=== PATIENT | female | born 1990 | race Asian ===

== ENCOUNTER 2023-03-17 13:03 | Emergency (ER) | payer SELFPAY ==
[2023-03-17 13:05] VITALS: BP 118/88; PULSE 100; RESP 16; TEMP 36.6; O2SAT 100; BMI 20.6
--- NOTE | 2023-03-17 14:56 | EDS_ITS ---
HPI HPI - GI History of Present Illness Chief Complaint: Wound Check Informant: patient Abdominal Pain/Flank Pain Onset: Days Context: Gradual Onset Timing: Continuous Current Severity: Mild Maximum Severity: 6/10 Nausea/Vomiting/Emesis GI Symptom: Negative for Nausea or Vomiting Diarrhea/Melena/Hematochezia GI Symptom: Negative for Diarrhea, Melena or Hematochezia Associated Symptoms Associated Symptoms: Negative for Dysuria, Frequency, Hematuria or Urgency Narrative Narrative: 32-year-old healthy female had a laparoscopic cholecystectomy done due to gallstones in [facility] a little over 4 weeks ago. Her and her are moving to [facility]. Family is with him and is uses the electronics production supervisor. She has basically had some drainage from one of the surgical sites. No fever. No vomiting. She has been eating well. Otherwise she feels fine. Prior similar symptoms: No Recent Illness/Hospitalization: No PFSH PFSH no medical history Home Medications NK 03/17/23 [History Last Taken Unknown] cephalexin 500 mg capsule 500 mg PO Q8H #30 caps 03/17/23 [Rx Last Taken Unknown] Allergy/AdvReac Type Severity Reaction Status Date / Time No Known Allergies Allergy Verified 03/17/23 13:04 Social History Smoking Status: Never smoker ROS ROS ED ROS Narrative Denies recent illness. Drainage from surgical site. Minor discomfort. Review of Systems ROS Unobtainable: Denies due to encephalopathy Constitutional Constitutional ED: Denies chills, fever(s) or subjective ENT ENT ED: Denies ear pain, rhinorrhea or sore throat Cardiovascular Cardiovascular: Denies chest pain, palpitations or racing heartbeat Respiratory/Chest Respiratory/Chest: Denies cough, dyspnea or dyspnea on exertion Gastrointestinal Gastrointestinal: Denies abdominal pain, constipation, diarrhea, melena, nausea or vomiting Genitourinary Genitourinary ED: Denies dysuria or hematuria Musculoskeletal Musculoskeletal: Denies arthralgias Integumentary Reports other Details: Drainage from right lower laparoscopic surgical site. Neurologic Neurologic: Denies headache(s) Psychiatric Psychiatric: Denies anxiety Endocrine Endocrinology: Denies polydipsia Hematologic/Lymphatic Hematologic/Lymphatic: Denies easy bleeding Allergic/Immunologic Allergic/Immunologic ED: Denies mouth swelling EXAM Physical Exam Narrative Exam Narrative: Well-appearing 32-year-old female. Vital signs stable afebrile. H EENT exam unremarkable. Lungs clear. Heart regular rhythm no murmur. Abdomen soft nondistended normal bowel sounds no peritoneal signs. She has 3 laparoscopic incisions in the right upper quadrant epigastric area. The most medial and proximal incision is not infected but it still healing. It is not completely closed. The most right upper quadrant incision is dry and clean and looks good and is nontender. The right lower and most lateral incision has puslike discharge consistent with infection. There is minimal tenderness. No redness or cellulitis. Only minimally tender. The right upper quadrant itself is not tender just the most of the right lower incision. That area looks like there is a wound infection. Otherwise the abdomen is benign. Left upper and lower and right lower quadrants are unremarkable. Nondistended. Normal bowel sounds. Moving all 4 extremities. Neurologically she is awake and alert. Const Vital Signs: 03/17/23 13:05 Temperature 97.8 F Temperature Source Temporal Pulse Rate 100 Respiratory Rate 16 Blood Pressure 118/88 H Blood Pressure Mean 98 Pulse Ox 100 Oxygen Delivery Method Room Air Positive well nourished and well developed; Negative for obese, cachectic, contractures or unkempt General Appearance ED: well developed and NAD; Negative for unkempt, cachectic, contractures or pallor Nutritional Appearance: Negative for cachectic or obese HEENT Reports moist mucous membranes normocephalic and atraumatic; Negative for trauma or tenderness Eyes PERRL and EOMs intact bilaterally General Eye ED: Negative for pale conjunctiva, scleral icterus or other Neck no lymphadenopathy, supple and no JVD General: Negative for tenderness Carotids: Negative for other Lymph Lymphatic: Negative for other Resp normal respiratory effort and clear to auscultation bilaterally Effort and Inspection: Negative for respiratory distress Auscultation: Negative for rales, rhonchi or wheezes Cardio regular rate, regular rhythm, S1 normal heart sound, S2 normal heart sound and no murmurs Rate: Negative for bradycardia or tachycardic Rhythm: Negative for abnormal rhythm GI non-tender, non-distended and no masses GI Narrative: Drainage from right lower laparoscopic incision. Infected. No cellulitis. No significant tenderness. Auscultation: normoactive bowel sounds Palpation: soft and tender; Negative for guarding or rigid Back/Spine no CVA tenderness General Back: Negative for CVA tenderness Cervical Spine: Negative for cervical spine tenderness Coccyx: Negative for other Extremity full ROM General Extremety ED: Negative for edema, tenderness or other findings General Extremity: Negative for edema or other findings Neuro CN's II-XII intact bilaterally and moves all extremities Sensorium / Orientation: alert, oriented to person, oriented to place and oriented to time; Negative for orientation impaired, confused, lethargic or stuporous Motor Exam: strength 5/5 throughout Psych mental status grossly normal and thought process normal Appearance: Negative for unkempt Attitude: No agitated Mood & Affect: Negative for depressed, anxious or tearful Skin no wounds General Skin Exam: Negative for jaundice or pallor Lesions: no lesions Rashes: no rashes Trauma: Negative for abrasion Nails: Negative for discolored MDM MDM MDM Narrative Medical decision making narrative: 32-year-old healthy [place] female who had a laparoscopic cholecystectomy over a month ago in [facility]. The 1 surgical laparoscopic site looks like it is infected with puslike drainage. No cellulitis. She was started on Keflex first dose given here #30 no refill and outpatient follow-up with one of our local general surgeons to ensure this is improving. Discharge Plan Triage Chief Complaint: Wound Check ED Provider: Tony Jimenez Dx/Rx/DC Orders Clinical Impression: Infected surgical wound Instructions: ED Wound Infection after surgery Prescriptions: New cephalexin 500 mg capsule 500 mg PO Q8H Qty: 30 0RF No Action NK Referrals: Hosea Cortes MD [Med Staff - Active Staff] - As soon as possible Activity Restrictions/Additional Instructions: The upper incision just has not closed yet. The right lower incision has signs of infection. You will be started on antibiotic Keflex 4 times a day for a week. Warm compresses to the right lower incision that is draining. Call and follow-up with the surgeon to have this reevaluated. Hopefully if will resolve with antibiotic alone. Sometimes into going to drain it if the infection does not clear up. Return if she is feeling a lot worse with fever or the abdominal wall looks worse.
[2023-03-17] MEDS: Cephalexin 250 MG Capsule 500 MG PO (15:08)
== END 2023-03-17 15:10 | disposition home or self-care (01) ==
LOC: ED 14:58
PROVIDERS: Emergency Provider Emergency Medicine; Visit Provider Emergency Medicine
DX: T81.41XA Infection following a procedure, superficial incisional surgical site, initial encounter (principal); X58.XXXA Exposure to other specified factors, initial encounter; Z90.49 Acquired absence of other specified parts of digestive tract
CPT/HCPCS: 99282

== ENCOUNTER → 2023-05-28 | Outpatient (CLI) | payer SELFPAY ==
--- NOTE | 2023-05-28 14:42 | CT_ITS ---
We are attempting to reach an attending provider to discuss findings. An addendum with communication details will be sent when the communication is complete. STUDY: CT ABDOMEN WITHOUT CONTRAST REASON FOR EXAM: Female, 32 years old. abdominal wound drainage, mass - RADIATION DOSAGE (If Supplied By Facility): CTDIvol = ( 6.04 ) mGy, DLP = ( 184.15 ) mGycm TECHNIQUE: Transaxial images were obtained without intravenous contrast, and oral contrast. Sagittal and coronal images were reconstructed. Individualized dose optimization techniques were used for this CT. COMPARISON: None. FINDINGS: The visualized lung bases are unremarkable. The visualized portions of the heart are within normal limits. The liver is normal in size. There is a cyst in left lobe as well as a second hypoattenuated nodule which is slightly greater in attenuation than simple cyst possibly due to volume averaging. Bile ducts are not dilated. Gallbladder has been removed surgically.. Normal spleen. Normal pancreas. Normal bilateral adrenal glands. Normal right kidney. Normal left kidney. Normal visualized stomach. Nonspecific ileus with diffuse fecal retention in the colon. . The appendix is visualized and appears normal. Normal abdominal aorta. Normal inferior vena cava. Normal retroperitoneum. There is a tiny anterior abdominal wall hernia with fat and mild thickening in the fat. Normal osseous structures. Uterus is enlarged projecting into the lower abdomen containing pelvic mass containing fluid consistent with intrauterine gestational sac noted on CAT scan of the pelvis. CT/Abdomen without IV Contrast IMPRESSION: 2 small hypoattenuated nodules in the liver one of which is clearly cystic and the other is indeterminate based on Hounsfield numbers. Ultrasound would be useful for further evaluation. Tiny fat-containing anterior abdominal wall hernia with mild thickening in the adjacent fat Large pelvic mass consistent with gravid uterus containing intrauterine gestational sac Electronically Signed: Russel Guillory MD at 17:23 EDT ,
--- NOTE | 2023-05-28 14:55 | CT_ITS ---
STUDY: CT PELVIS WITHOUT CONTRAST REASON FOR EXAM: Female, 32 years old. MASS RADIATION DOSAGE (If Supplied By Facility): CTDIvol = ( 6.17 ) mGy, DLP = ( 151.43 ) mGycm TECHNIQUE: Transaxial imaging of the pelvis was performed with oral contrast, and without intravenous administration of contrast material. Individualized dose optimization techniques were used for this CT. COMPARISON: None. FINDINGS: Uterus is enlarged demonstrates an intrauterine gestational sac containing a fetus The bladder is compressed due to enlarged uterus. Normal visualized small intestine. Normal visualized colon. There is no pelvic fluid. There is no pelvic mass lesion or lymphadenopathy. Normal visualized pelvic arteries. Normal abdominal wall. Normal osseous structures. CT/Pelvis without IV Contrast IMPRESSION: Large uterus containing intrauterine gestation Obstetrical sonography recommended for further evaluation if clinically warranted Electronically Signed: Russel Guillory MD at 17:58 EDT ,
== END | disposition home or self-care (01) ==
PROVIDERS: Referring Provider Surgery; Visit Provider Surgery
DX: R19.00 Intra-abdominal and pelvic swelling, mass and lump, unspecified site (principal)
CPT/HCPCS: 72192; 74150